=== PATIENT | male | born 1955 | race Caucasian/White ===

== ENCOUNTER 2017-04-10 09:44 | Emergency (ER) | payer MEDICARE ==
[2017-04-10] VITALS (8 sets, daily range): BP systolic 146–200; BP diastolic 91–119; PULSE 78–94; RESP 16–18; TEMP 98.3; O2SAT 97–98
[~2017-04-10] VITALS: Ht 182.9 cm; Wt 122.0 kg
[2017-04-10] MEDS ORDERED: METF-382 PO (10:14)
[2017-04-10] MEDS ORDERED: LEVEMIR SQ (10:14)
[2017-04-10] MEDS ORDERED: HYDR12.57 PO (10:14)
[2017-04-10] MEDS ORDERED: AMLO10TA2 PO (10:14)
--- NOTE | 2017-04-10 10:27 | PD ---
HPI Chief Complaint: Hypertension Time Seen by Provider: 10:04 Travel History International Travel<30 days: No Contact w/Intl Traveler<30days: No Traveled to known affect area: No History of Present Illness HPI 62yo M with PMH of HTN, DM presents to the ED with c/o increased urinary frequency for 3-4 days. States it was associated with waking up at night to go urinate. Denies any dysuria, hematuria, n/v, abdominal pain. Pt also has been feeling dizziness and has mild headache for about 3-4 days. He has not taken his blood pressure medication for a few days as well. States he gets headaches when he blood pressure is elevated. Denies any fever, neck pain, visual changes , chest pain, sob, focal weakness or numbness, trauma or fall. 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 PFSH Past Medical History High Cholesterol: Yes Diabetes: Yes Patient Takes Glucophage: Yes Diminished Hearing: No Hypertension: Yes Neurologic: Yes Tetanus Vaccination: > 5 Years Influenza Vaccination: Yes Past Surgical History Joint Replacement: Yes (LEFT KNEE) Neurologic Surgery: Yes (BRAIN BLEED) Social History Alcohol Use: Yes (RARE) Tobacco Use: No Substance Use: No Allergies-Medications (Allergen,Severity, Reaction): Coded Allergies: cephalexin (Verified Allergy, Severe, Hives, 04/10/17) Reported Meds & Prescriptions Reported Meds & Active Scripts Active Tylenol (Acetaminophen) 325 Mg Tab 650 Mg PO Q6H PRN Reported Apidra Inj (Insulin Glulisine Inj) 1,000 Unit/10 Ml Vial 12 Units SQ Hydroxychloroquine (Hydroxychloroquine Sulfate) 200 Mg Tab 200 Mg PO BID Takw with food Cymbalta DR (Duloxetine HCl) 60 Mg Capdr 60 Mg PO DAILY Valsartan-Hydrochlorothiazide 320-25 Mg Tab 1 Tab PO DAILY Fenofibrate 160 Mg Tab 200 Mg PO DAILY Meloxicam 15 Mg Tab 15 Mg PO DAILY Allopurinol 100 Mg Tab 100 Mg PO DAILY Levemir Inj (Insulin Detemir) 1,000 unit/ 10 ML Vial 55 Units SQ HS Do not mix with any other Insulin. Metformin ER (Metformin HCl) 1,000 Mg Yo 1,000 Mg PO BID With evening meal Review of Systems Except as stated in HPI: all other systems reviewed are Neg Physical Exam Narrative GENERAL: 62yo M not in distress. SKIN: Focused skin assessment warm/dry. HEAD: Atraumatic. Normocephalic. EYES: Pupils equal and round at 4mm bilaterally. EOMI. ENT: No nasal bleeding or discharge. Mucous membranes pink and moist. NECK: Trachea midline. No JVD. No nuchal rigidity. CARDIOVASCULAR: Regular rate and rhythm. No murmur appreciated. RESPIRATORY: No accessory muscle use. Clear to auscultation. Breath sounds equal bilaterally. GASTROINTESTINAL: Abdomen soft, non-tender, nondistended. No rebound tenderness or guarding. MUSCULOSKELETAL: No obvious deformities. No clubbing. No cyanosis. No edema. NEUROLOGICAL: Awake and alert. No obvious cranial nerve deficits. Motor grossly within normal limits. Normal speech. PSYCHIATRIC: Appropriate mood and affect; insight and judgment normal. Data Data Last Documented VS Vital Signs Date Time Temp Pulse Resp B/P (MAP) Pulse Ox O2 Delivery O2 Flow Rate FiO2 04/10/17 13:08 88 18 146/93 (110) 97 Room Air 04/10/17 09:51 98.3 Orders Orders Amlodipine (Norvasc) (04/10/17 10:30) Hydrochlorothiazide (Microzide) (04/10/17 10:30) Electrocardiogram (04/10/17 10:20) Basic Metabolic Panel (Bmp) (04/10/17 10:20) Complete Blood Count With Diff (04/10/17 10:20) Troponin I (04/10/17 10:20) Urinalysis - C+S If Indicated (04/10/17 10:20) Blood Glucose (04/10/17 10:20) Ecg Monitoring (04/10/17 10:20) Iv Access Insert/Monitor (04/10/17 10:20) Oximetry (04/10/17 10:20) Sodium Chloride 0.9% Flush (Ns Flush) (04/10/17 10:30) Orthostatic Vital Signs (04/10/17 10:20) Acetaminophen (Tylenol) (04/10/17 11:00) Insulin Human Regular Inj (Novolin R Inj (04/10/17 11:30) Hydralazine Inj (Apresoline Inj) (04/10/17 12:30) Blood Glucose (04/10/17 12:25) Labs Laboratory Tests Test 04/10/17 10:25 White Blood Count 8.4 TH/MM3 Red Blood Count 6.02 MIL/MM3 Hemoglobin 16.7 GM/DL Hematocrit 49.7 % Mean Corpuscular Volume 82.6 FL Mean Corpuscular Hemoglobin 27.7 PG Mean Corpuscular Hemoglobin Concent 33.6 % Red Cell Distribution Width 12.5 % Platelet Count 215 TH/MM3 Mean Platelet Volume 9.6 FL Neutrophils (%) (Auto) 66.6 % Lymphocytes (%) (Auto) 23.0 % Monocytes (%) (Auto) 5.6 % Eosinophils (%) (Auto) 2.0 % Basophils (%) (Auto) 2.8 % Neutrophils # (Auto) 5.6 TH/MM3 Lymphocytes # (Auto) 1.9 TH/MM3 Monocytes # (Auto) 0.5 TH/MM3 Eosinophils # (Auto) 0.2 TH/MM3 Basophils # (Auto) 0.2 TH/MM3 CBC Comment DIFF FINAL Differential Comment Urine Collection Type CLEAN CATCH Urine Color YELLOW Urine Turbidity CLEAR Urine pH 6.0 Urine Specific Dora 1.035 Urine Protein 30 mg/dL Urine Glucose (UA) 1000 OR GREATER mg/dL Urine Ketones TRACE mg/dL Urine Occult Blood SMALL Urine Nitrite NEG Urine Bilirubin NEG Urine Leukocyte Esterase NEG Urine RBC 4-9 /hpf Urine WBC 0-2 /hpf Urine Squamous Epithelial Cells 0-5 /hpf Microscopic Urinalysis Comment CULT NOT INDICATED Urine Collection Time 10:25 Blood Urea Nitrogen 11 MG/DL Creatinine 0.99 MG/DL Random Glucose 436 MG/DL Calcium Level 9.2 MG/DL Sodium Level 134 MEQ/L Potassium Level 3.8 MEQ/L Chloride Level 96 MEQ/L Carbon Dioxide Level 26.6 MEQ/L Anion Gap 11 MEQ/L Estimat Glomerular Filtration Rate 76 ML/MIN Troponin I 0.04 NG/ML [facility] Medical Decision Making Medical Screen Exam Complete: Yes Emergency Medical Condition: Yes Interpretation(s) EKG: NSR 85bpm. LAD. Q waves III, aVF. Differential Diagnosis Headache secondary to elevated blood pressure vs. DKA vs. uncontrolled HTN secondary to noncompliance vs. atypical ACS Narrative Course 62yo M who is noncompliant with his HTN and DM medications here with c/o urinary frequency and mild headache. Labs reviewed, no leukocytosis. Blood glucose elevated at 436. CO2 26.6. Normal anion gap. Pt given regular insulin 10 units and blood glucose trending down. Troponin negative at 0.04. UA showed 1000 or greater glucose. Negative leukocyte. Culture not indicated. Pt given acetaminophen and headache has improved. No longer dizzy. Pt feels better. Pt given amlodipine, HCTZ and hydralazine and blood pressure is now 146 /93. Pt has all his medications and was too lazy to take them so instructed his to make sure he takes them. Strict return precautions given. Diagnosis Primary Impression: Uncontrolled blood glucose Additional Impression: Uncontrolled hypertension Patient Instructions: General Instructions Departure Forms: Tests/Procedures Additional Instructions: Please take your medications as instructed by your physician. Please return to the ED if symptoms worsen. Please follow up with your primary care physician in 1-2 days. Med/Other Pt SpecificInfo: Prescription(s) given Scripts Acetaminophen (Tylenol) 325 Mg Tab 650 MG PO Q6H Y for PAIN SCALE 1 TO 4, #20 TAB 0 Refills Prov: Salima Marino DO 04/10/17 Disposition: 01 DISCHARGE HOME Condition: Stable Salima Marino DO Apr 10, 2017 10:27
[2017-04-10] MEDS ORDERED: HYDROCHLOROTHIAZIDE 12.5 MG CAP PO ONE (10:30)
[2017-04-10] MEDS ORDERED: SODIUM CHLORIDE 0.9% FLUSH 10 ML FLUSH IVF PRN (10:30)
[2017-04-10 10:35] LABS: AUTOMATED NEUTROPHIL # 5.6 TH/MM3 (1.8-7.7); BASOPHIL # 0.2 TH/MM3 (0-0.2); BASOPHIL % 2.8 % (0.0-2.0); EOSINOPHIL # 0.2 TH/MM3 (0-0.4); HEMATOCRIT 49.7 % (39.0-51.0); HEMO FLAGS DIFF FINAL; LYMPHOCYTE # 1.9 TH/MM3 (1.0-4.8); MEAN CELL VOLUME 82.6 FL (80.0-100.0); MEAN CORPUSCULAR HEMOGLOBIN 27.7 PG (27.0-34.0); MEAN CORPUSCULAR HGB CONC 33.6 % (32.0-36.0); MONO % 5.6 % (0.0-8.0); NEUT % 66.6 % (16.0-70.0); PLATELET COUNT 215 TH/MM3 (150-450); RED BLOOD COUNT 6.02 MIL/MM3 (4.50-5.90); RED CELL DISTRIBUTION WIDTH 12.5 % (11.6-17.2); WHITE BLOOD COUNT 8.4 TH/MM3 (4.0-11.0)
[2017-04-10 10:47] LABS: BLOOD, URINE SMALL (NEG); GLUCOSE,URINE 1000 OR GREATER mg/dL (NEG); KETONE, URINE TRACE mg/dL (NEG); NITRITE,URINE NEG (NEG)
[2017-04-10 10:49] LABS: POTASSIUM 3.8 MEQ/L (3.5-5.1)
[2017-04-10 10:51] LABS: BICARBONATE 26.6 MEQ/L (21.0-32.0)
[2017-04-10 10:52] LABS: COMMENT (UR) CULT NOT INDICATED; CULTURE IF INDICATED CULT NOT INDICATED; METHOD OF COLLECTION CLEAN CATCH; SQUAMOUS EPITHELIAL CELL URINE 0-5 /hpf (0-5); URINE COLOR YELLOW (YELLW/STRAW); WBC, URINE 0-2 /hpf (0-5)
[2017-04-10] MEDS ORDERED: ACETAMINOPHEN 325 MG TAB PO ONE (11:00)
[2017-04-10] MEDS ORDERED: INSULIN HUMAN REGULAR 1,000 UNITS/10 ML VIAL SQ ONE (11:30)
[2017-04-10] MEDS ORDERED: ALLO100T PO (11:37)
[2017-04-10] MEDS ORDERED: MELO-1 PO (11:37)
[2017-04-10] MEDS ORDERED: VALS320T6 PO (11:37)
[2017-04-10] MEDS ORDERED: APIDINJ SQ (11:37)
[2017-04-10] MEDS ORDERED: FENO160T PO (11:37)
[2017-04-10] MEDS ORDERED: CYMB60CA PO (11:37)
[2017-04-10] MEDS ORDERED: HYDR200T3 PO (11:37)
[2017-04-10] MEDS ORDERED: hydrALAZINE HCL 20 MG/ML VIAL IV PUSH ONE (12:30)
[2017-04-10] MEDS ORDERED: TYLE325T PO (13:13)
--- NOTE | 2017-04-10 14:01 | EKG ---
Date Performed: 04/10/2017 Time Performed: 10:45:53 PTAGE: 62 years EKG: Sinus rhythm WITH SINUS ARRHYTHMIA NONSPECIFIC T-WAVE ABNORMALITY BORDERLINE ECG NO PREVIOUS TRACING DOCTOR: Sarkis Conroy Interpretating Date/Time 04/10/2017 14:00:16
== END 2017-04-10 13:26 | disposition home or self-care (01) ==
LOC: PHED 09:44
DX: E11.65 Type 2 diabetes mellitus with hyperglycemia (principal); R35.0 Frequency of micturition; I10 Essential (primary) hypertension; Z79.84 Long term (current) use of oral hypoglycemic drugs; Z79.899 Other long term (current) drug therapy
CPT/HCPCS: 80048; 81001; 84484; 85025; 93005; 96372; 96374; 99284; J0360; J1815